=== PATIENT | male | born 1945 | race Caucasian/White ===

== ENCOUNTER 2019-08-29 06:34 | Day surgery (SDC) | payer MEDICARE ==
[~2019-08-29] VITALS: Ht 180.3 cm; Wt 88.5 kg
[~2019-08-29 06:34] MED LIST: FENO135C PO; FIORICET PO; FLEXERIL PO; JARDIANCE; LIP40 PO; LIRA0.6P2 SUBCUT; PROT40 PO; REPAGLINIDE; SERT25TA74 PO; TRIA1TAB5 PO; VICODIN PO; ZOLP5TAB2 PO
[2019-08-29] MEDS ORDERED: IODIXANOL 320MG/ML 100 ML BOTTLE IV ONE (07:35)
[2019-08-29] MEDS ORDERED: LIDOCAINE HCL 1% 20ML VIAL (Pyxis) INJ ONE (07:35)
[2019-08-29] MEDS ORDERED: ASPIRIN/SOD BICARB/CITRIC ACID 324MG TAB EFF ONE (07:36)
[2019-08-29] MEDS ORDERED: MIDAZOLAM HCL 2 MG/2 ML VIAL ONE ×2 (07:49→08:24)
[2019-08-29] MEDS ORDERED: FENTANYL CITRATE/PF 50MCG/ML 2ML VIAL ONE (07:49)
[2019-08-29] MEDS ORDERED: ONDANSETRON HCL 4MG/2ML INJ IV PRN (09:00)
[2019-08-29] MEDS ORDERED: MORPHINE SULFATE 2 MG/ML CPJ (NOT FOR IM USE) IV PRN (09:00)
[2019-08-29] MEDS ORDERED: ACETAMINOPHEN 325MG TABLET PO PRN (09:00)
[2019-08-29 09:31] LABS: CHLORIDE 106 mEq/L (98-107)
[2019-08-29 10:22] VITALS: BP 137/53
[2019-08-29] MEDS ORDERED: HEPARIN SODIUM 1,000 UNIT/1ML VIAL IV ONE (11:36)
[2019-08-29] MEDS ORDERED: NICARDIPINE 100MCG/ML 10ML VIAL (CATH LAB) IV ONE (11:36)
[2019-08-29] MEDS ORDERED: NITROGLYCERIN 50MCG/ML 10ML VIAL (CATH LAB) IV ONE (11:36)
== END 2019-08-29 13:20 | disposition home or self-care (01) ==
LOC: CCL 06:34
PROVIDERS: ATTEND Specialist
DX: I25.10 Atherosclerotic heart disease of native coronary artery without angina pectoris (principal); I10 Essential (primary) hypertension; Z79.899 Other long term (current) drug therapy; Z95.5 Presence of coronary angioplasty implant and graft; Z85.810 Personal history of malignant neoplasm of tongue; Z92.3 Personal history of irradiation
CPT/HCPCS: 36415; 80048; 82962; 93454; 99152; 99153; C1769; C1887; C1893; J1644; J2250; J2270; J3010; J3490; Q9967; 93458; G0500